=== PATIENT | male | born 1960 | race Caucasian/White ===

== ENCOUNTER → 2016-11-17 | Outpatient (CLI) | payer MEDICARE, MEDICAID ==
[2016-02-09 15:12] VITALS: BP 120/79
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
== END | disposition home or self-care (01) ==
LOC: KCIC 08:17
PROVIDERS: ATTEND Family Medicine
DX: M54.5 Low back pain (principal); M47.897 Other spondylosis, lumbosacral region
CPT/HCPCS: 72110

== ENCOUNTER 2017-05-09 10:59 | Emergency (ER) | payer MEDICARE, MEDICAID ==
[~2017-05-09] VITALS: Ht 180.3 cm; Wt 69.4 kg
[2017-05-09] MEDS ORDERED: KETOROLAC TROMETHAMINE 30 MG/ML INJ. IV ONE (11:30)
[2017-05-09 11:44] LABS: BASO % 1 % (0-3); EOS % 2 % (0-3); HEMATOCRIT 42.4 % (39.0-53.0); HEMOGLOBIN 14.4 g/dL (13.0-17.5); LYMPH # 2.3 x10^3/uL (1.0-4.8); LYMPH % 35 % (24-48); MEAN CORPUSCULAR HEMOGLOBIN 31 pg (25-35); MEAN CORPUSCULAR HGB CONC 34 g/dL (31-37); MEAN CORPUSCULAR VOLUME 92 fL (79-100); MONO % 7 % (0-9); NEUT % 55 % (31-73); PLATELET COUNT 304 x10^3/uL (140-400); RED CELL DISTRIBUTION WIDTH 13.3 % (11.5-14.5); WHITE BLOOD COUNT 6.5 x10^3/uL (4.0-11.0)
[2017-05-09 11:55] LABS: CALCIUM 8.7 mg/dL (8.5-10.1); CREATININE 1.2 mg/dL (0.7-1.3); GFR 62.9; POTASSIUM 4.1 mmol/L (3.5-5.1)
[2017-05-09 12:00] VITALS: BP 113/63
--- NOTE | 2017-05-09 12:00 | RAD ---
AP portable chest radiograph May 09, 2017 Clinical History: Left-sided chest pain. An AP portable erect digital radiograph of the chest was obtained. Comparison study is dated 02/09/2016. The cardiac and mediastinal silhouettes within normal limits in size and configuration. No acute pulmonary infiltrate is seen. No pleural effusion or pneumothorax is noted. Degenerative changes are seen involving the thoracic spine and both shoulders. Impression: No acute abnormality is seen.
[2017-05-09 12:01] LABS: ALBUMIN 3.9 g/dL (3.4-5.0); DIRECT BILIRUBIN 0.1 mg/dL (0.0-0.2); MAGNESIUM 2.3 mg/dL (1.8-2.4); TOTAL BILIRUBIN 0.5 mg/dL (0.2-1.0)
[2017-05-09 12:10] LABS: CKMB MASS 4.8 ng/mL (0.0-3.6)
--- NOTE | 2017-05-09 12:11 | EKG ---
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
--- NOTE | 2017-05-09 12:29 | PHYS DOC ---
Past Medical History Past Medical History: Arthritis, Asthma, COPD, GERD, Other Additional Past Medical Histor: "borderline kidney failure", OA Past Surgical History: Appendectomy, Other Additional Past Surgical Histo: bilateral knee, R shoulder Alcohol Use: Occasionally Drug Use: Marijuana Adult General Chief Complaint Chief Complaint: CHEST PAIN HPI HPI Patient is a 57 year old male brought from home by a family member with the complaint of shortness of air and chest pain. Patient has a history of COPD. He started having pain on the left side of his chest today that feels like "my diaphragm is cramping up". He states that the pain is worse when he takes a breath or moves. He's had pain like this before. It also worsens when he coughs. He has had a cough lately but he always has one. Patient did take a breathing treatment this morning that might have helped him. He did not take anything for the pain. He denies fever or chills. He is somewhat more short of breath than usual. Patient is a smoker. Review of Systems Review of Systems Constitutional: Denies fever or chills [] Eyes: Denies change in visual acuity, redness, or eye pain [] HENT: He has had some sinus congestion Respiratory: As in history of present illness Cardiovascular: He is not having chest pain that sounds cardiac, as in history of present illness. GI: Denies abdominal pain, nausea, vomiting, bloody stools or diarrhea [] : Denies dysuria or hematuria [] Musculoskeletal: Denies back pain or joint pain [] Integument: Denies rash or skin lesions [] Neurologic: Denies headache, focal weakness or sensory changes [] Current Medications Current Medications Current Medications Medications (Trade) Dose Ordered Sig/Maddison Start Time Stop Time Status Last Admin Dose Admin Ketorolac Tromethamine (Toradol) 30 mg 1X ONCE 05/09/17 11:30 05/09/17 11:31 DC 05/09/17 11:41 30 MG Allergies Allergies Allergies Coded Allergies Type Severity Reaction Last Updated Verified No Known Drug Allergies 08/07/14 No Physical Exam Physical Exam Constitutional: 57-year-old thin male who is alert, not dyspneic, but does seem to be splinting a bit with deep breaths, pulse ox on room air 95%, no acute distress. HENT: Normocephalic, atraumatic, bilateral external ears normal, nose normal. [ ] Eyes: conjunctiva normal, no discharge. [] Neck: Normal range of motion, no stridor. [] Cardiovascular:Heart rate regular rhythm, no murmur [] Lungs & Thorax: Bilateral breath sounds clear to auscultation , no wheezes, no prolongation of expiratory phase. Abdomen: Bowel sounds normal, soft, no tenderness, no masses, no pulsatile masses. [] Skin: Warm, dry, no erythema, no rash. [] Extremities: No tenderness, no cyanosis, no clubbing, ROM intact, no edema. [] Neurologic: Alert and oriented X 3, normal motor function, normal sensory function, no focal deficits noted. [] Current Patient Data Vital Signs Vital Signs Date Time Temp Pulse Resp B/P (MAP) Pulse Ox O2 Delivery O2 Flow Rate FiO2 05/09/17 12:00 66 18 113/63 (80) Room Air 05/09/17 11:05 97.8 100 97.8 Lab Values Laboratory Tests Test 05/09/17 11:15 White Blood Count 6.5 x10^3/uL (4.0-11.0) Red Blood Count 4.60 x10^6/uL (4.30-5.70) Hemoglobin 14.4 g/dL (13.0-17.5) Hematocrit 42.4 % (39.0-53.0) Mean Corpuscular Volume 92 fL (79-100) Mean Corpuscular Hemoglobin 31 pg (25-35) Mean Corpuscular Hemoglobin Concent 34 g/dL (31-37) Red Cell Distribution Width 13.3 % (11.5-14.5) Platelet Count 304 x10^3/uL (140-400) Neutrophils (%) (Auto) 55 % (31-73) Lymphocytes (%) (Auto) 35 % (24-48) Monocytes (%) (Auto) 7 % (0-9) Eosinophils (%) (Auto) 2 % (0-3) Basophils (%) (Auto) 1 % (0-3) Neutrophils # (Auto) 3.6 x10^3uL (1.8-7.7) Lymphocytes # (Auto) 2.3 x10^3/uL (1.0-4.8) Monocytes # (Auto) 0.5 x10^3/uL (0.0-1.1) Eosinophils # (Auto) 0.1 x10^3/uL (0.0-0.7) Basophils # (Auto) 0.0 x10^3/uL (0.0-0.2) Sodium Level 142 mmol/L (136-145) Potassium Level 4.1 mmol/L (3.5-5.1) Chloride Level 106 mmol/L (98-107) Carbon Dioxide Level 24 mmol/L (21-32) Anion Gap 12 (6-14) Blood Urea Nitrogen 16 mg/dL (8-26) Creatinine 1.2 mg/dL (0.7-1.3) Estimated GFR (Cockcroft-Gault) 62.9 Glucose Level 117 mg/dL (70-99) H Calcium Level 8.7 mg/dL (8.5-10.1) Magnesium Level 2.3 mg/dL (1.8-2.4) Total Bilirubin 0.5 mg/dL (0.2-1.0) Direct Bilirubin 0.1 mg/dL (0.0-0.2) Aspartate Amino Transferase (AST) 21 U/L (15-37) Alanine Aminotransferase (ALT) 24 U/L (16-63) Alkaline Phosphatase 62 U/L (46-116) Creatine Kinase 461 U/L (39-308) H Creatine Kinase MB (Mass) 4.8 ng/mL (0.0-3.6) H Creatine Kinase MB Relative Index 1.0 % (0-4) Troponin I Quantitative < 0.017 ng/mL (0.000-0.055) CV-Kwy-G-Type Natriuretic Peptide 94 pg/mL (0-124) Total Protein 7.0 g/dL (6.4-8.2) Albumin 3.9 g/dL (3.4-5.0) Lipase 125 U/L (73-393) Laboratory Tests 05/09/17 11:15 Laboratory Tests 05/09/17 11:15 EKG EKG 12-lead EKG read by me. Sinus rhythm. Heart rate 66. There are no acute ST or T wave changes indicative of ischemia or infarction. No STEMI. [] Radiology/Procedures Radiology/Procedures One view portable chest x-ray read by the radiologist. No acute abnormality. [] Course & Med Decision Making Course & Med Decision Making Pertinent Labs and Imaging studies reviewed. (See chart for details) 57-year-old male with a history of COPD presents with left-sided chest pain that is very positional, worsens with of breath, worsens with movement. Labs, EKG, chest x-ray unrevealing for acute abnormality. His lung exam is clear. Patient was given some IV Toradol and stated it helped him a lot. Before I was able to get back in the room to touch bases with the patient, he got his clothes on and came up to the nurse's desk stating that he was ready to go. I talked to him briefly and asked him if I could get some paperwork for him but the patient walked out of the emergency department as soon as his IV was discontinued. He ambulated without difficulty or dyspnea. I believe the patient is stable for discharge. [] Dragon Disclaimer Dragon Disclaimer This electronic medical record was generated, in whole or in part, using a voice recognition dictation system. Departure Departure Impression: Primary Impression: Chest wall pain Additional Impression: Bronchitis Disposition: 01 HOME, SELF-CARE Condition: IMPROVED Referrals: Shantelle CHA MD (PCP) Patient Instructions: Acute Bronchitis, [id number] Additional Instructions: You may try ibuprofen 400 mg (two of the OTC 200 mg pills) every 6-8 hours as needed for pain. Problem Qualifiers FRANCO FORBES MD May 09, 2017 12:29
== END 2017-05-09 12:33 | disposition home or self-care (01) ==
LOC: ER 10:59
DX: J40 Bronchitis, not specified as acute or chronic (principal); R07.89 Other chest pain; K21.9 Gastro-esophageal reflux disease without esophagitis; J44.9 Chronic obstructive pulmonary disease, unspecified; M19.90 Unspecified osteoarthritis, unspecified site; F12.10 Cannabis abuse, uncomplicated
CPT/HCPCS: 36415; 71010; 80048; 80076; 82553; 83690; 83735; 83880; 84484; 85025; 93005; 96374; 99285; J1885

== ENCOUNTER → 2017-07-21 | Outpatient (CLI) | payer MEDICARE, MEDICAID ==
--- NOTE | 2017-07-21 12:53 | RAD ---
Carotid ultrasound, 07/21/2017: History: Dizziness Duplex evaluation of the carotid arteries in neck was performed including grayscale, color-flow and spectral Doppler analysis. There is mild smooth plaquing at both carotid bifurcations. On the right the peak systolic velocity in the internal carotid artery is 91 cm/s with an end-diastolic velocity of 38 cm/s. The internal carotid to common carotid artery ratio is 1.2. On the left the peak systolic velocity in the internal carotid artery is 80 cm/s with an end-diastolic velocity of 33 cm/s. The internal carotid to common carotid artery ratio is 1.0. The Doppler findings on both sides suggest narrowing in the 0-50% diameter range. Antegrade flow is present in both vertebral arteries in the neck. IMPRESSION: Mild atherosclerotic plaquing at both carotid bifurcations with underlying luminal narrowing in the 0-50% diameter range bilaterally. Note: Stenosis calculations for CTA, MRA and conventional angiography are based upon determination of the distal ICA diameter in accordance with the NASCET methodology. Stenosis calculations for Doppler studies are derived from validated velocity criteria which are known to correlate with NASCET methodology of determining stenosis.
== END | disposition home or self-care (01) ==
LOC: US 09:54
PROVIDERS: ATTEND Otolaryngology
DX: I65.23 Occlusion and stenosis of bilateral carotid arteries (principal); R42 Dizziness and giddiness
CPT/HCPCS: 93880

== ENCOUNTER 2019-02-13 23:17 | Emergency (ER) | payer MEDICARE, MEDICAID ==
[~2019-02-13] VITALS: Ht 180.3 cm; Wt 73.9 kg
--- NOTE | 2019-02-13 23:39 | PHYS DOC ---
Past Medical History Past Medical History: Arthritis, Asthma, COPD, GERD, High Cholesterol, Other Additional Past Medical Histor: "borderline kidney failure", OA Past Surgical History: Appendectomy, Other Additional Past Surgical Histo: bilateral knee, R shoulder Smoking: Cigarettes Alcohol Use: Occasionally Drug Use: Marijuana Adult General Chief Complaint Chief Complaint: CHEST PAIN HPI HPI 58-year-old male presents with report of sternal chest pain which started at approximately 1600 today. Patient reports associated shortness of air and radiation down left arm and into back. Cardiac risk factors of high cholesterol, smoking, and family history. Denies leg swelling or calf tenderness. Denies pleuritic pain. Denies known trauma. Denies rash. Denies fever/chills. Review of Systems Review of Systems Constitutional: Denies fever or chills [] Eyes: Denies change in visual acuity, redness, or eye pain [] HENT: Denies nasal congestion or sore throat [] Respiratory: Denies cough; reports shortness of air Cardiovascular: Reports chest pain; denies palpitations GI: Denies abdominal pain, nausea, vomiting, or diarrhea [] : Denies dysuria or hematuria [] Musculoskeletal: Denies back pain or joint pain [] Integument: Denies rash or skin lesions [] Neurologic: Denies headache, focal weakness or sensory changes [] Complete systems were reviewed and found to be within normal limits, except as documented in this note. Current Medications Current Medications Current Medications Medications (Trade) Dose Ordered Sig/Maddison Start Time Stop Time Status Last Admin Dose Admin Aspirin (Millie Aspirin) 325 mg 1X ONCE 02/13/19 23:45 02/13/19 23:46 DC 02/13/19 23:50 325 MG Fentanyl Citrate (Fentanyl 2ml Vial) 50 mcg 1X ONCE 02/13/19 23:45 02/13/19 23:46 DC 02/13/19 23:51 50 MCG Ondansetron HCl (Zofran) 4 mg 1X ONCE 02/13/19 23:45 02/13/19 23:46 DC 02/13/19 23:51 4 MG Sodium Chloride 1,000 ml @ 1,000 mls/hr 1X ONCE 02/13/19 23:45 02/14/19 00:44 DC 02/13/19 23:50 1,000 MLS/HR Allergies Allergies Allergies Coded Allergies Type Severity Reaction Last Updated Verified No Known Drug Allergies 08/07/14 No Physical Exam Physical Exam Constitutional: Well developed, well nourished, no acute distress, non-toxic appearance. [] HENT: Normocephalic, atraumatic Eyes: Conjunctiva normal, no discharge. [] Neck: Normal range of motion, no tenderness, supple Cardiovascular: Heart rate normal, regular rhythm Lungs & Thorax: Bilateral breath sounds clear to auscultation [] Abdomen: Soft, no tenderness Skin: Warm, dry, no erythema, no rash. [] Extremities: No tenderness, ROM intact, no edema. [] Neurologic: Alert and oriented X 3, no focal deficits noted. [] Psychologic: Affect normal, judgement normal, mood normal. [] Current Patient Data Vital Signs Vital Signs Date Time Temp Pulse Resp B/P (MAP) Pulse Ox O2 Delivery O2 Flow Rate FiO2 02/13/19 23:59 68 24 124/75 (91) Room Air 02/13/19 23:51 99 02/13/19 23:22 98.0 98.0 Lab Values Laboratory Tests Test 02/13/19 23:27 White Blood Count 8.6 x10^3/uL (4.0-11.0) Red Blood Count 4.69 x10^6/uL (4.30-5.70) Hemoglobin 14.4 g/dL (13.0-17.5) Hematocrit 42.0 % (39.0-53.0) Mean Corpuscular Volume 90 fL (79-100) Mean Corpuscular Hemoglobin 31 pg (25-35) Mean Corpuscular Hemoglobin Concent 34 g/dL (31-37) Red Cell Distribution Width 13.7 % (11.5-14.5) Platelet Count 340 x10^3/uL (140-400) Neutrophils (%) (Auto) 45 % (31-73) Lymphocytes (%) (Auto) 45 % (24-48) Monocytes (%) (Auto) 6 % (0-9) Eosinophils (%) (Auto) 3 % (0-3) Basophils (%) (Auto) 1 % (0-3) Neutrophils # (Auto) 3.8 x10^3uL (1.8-7.7) Lymphocytes # (Auto) 3.8 x10^3/uL (1.0-4.8) Monocytes # (Auto) 0.5 x10^3/uL (0.0-1.1) Eosinophils # (Auto) 0.2 x10^3/uL (0.0-0.7) Basophils # (Auto) 0.1 x10^3/uL (0.0-0.2) Prothrombin Time 11.1 SEC (11.7-14.0) L Prothrombin Time INR 0.8 (0.8-1.1) PTT 29 SEC (24-38) D-Dimer (Marielle) 0.44 ug/mlFEU (0.00-0.50) Sodium Level 140 mmol/L (136-145) Potassium Level 4.3 mmol/L (3.5-5.1) Chloride Level 104 mmol/L (98-107) Carbon Dioxide Level 25 mmol/L (21-32) Anion Gap 11 (6-14) Blood Urea Nitrogen 16 mg/dL (8-26) Creatinine 1.6 mg/dL (0.7-1.3) H Estimated GFR (Cockcroft-Gault) 44.9 BUN/Creatinine Ratio 10 (6-20) Glucose Level 123 mg/dL (70-99) H Calcium Level 8.6 mg/dL (8.5-10.1) Magnesium Level 2.3 mg/dL (1.8-2.4) Total Bilirubin 0.2 mg/dL (0.2-1.0) Aspartate Amino Transferase (AST) 17 U/L (15-37) Alanine Aminotransferase (ALT) 21 U/L (16-63) Alkaline Phosphatase 86 U/L (46-116) Creatine Kinase 159 U/L (39-308) Creatine Kinase MB (Mass) 1.3 ng/mL (0.0-3.6) Creatine Kinase MB Relative Index 0.8 % (0-4) Troponin I Quantitative < 0.017 ng/mL (0.000-0.055) DE-Ekx-R-Type Natriuretic Peptide 124 pg/mL (0-124) Total Protein 7.0 g/dL (6.4-8.2) Albumin 3.4 g/dL (3.4-5.0) Albumin/Globulin Ratio 0.9 (1.0-1.7) L Lipase 185 U/L (73-393) Laboratory Tests 02/13/19 23:27 Laboratory Tests 02/13/19 23:27 EKG EKG @2324 NSR at 67bpm, NO ST elevation, incomplete RBBB Radiology/Procedures Radiology/Procedures CXR 2 view (preliminary interpretation by ED physician): NO acute process Course & Med Decision Making Course & Med Decision Making Pertinent Labs and Imaging studies reviewed. (See chart for details) Patient was significant cardiac risk factors presents with report of sternal chest pain with radiation to back and down left arm. Reports associated shortness of air. EKG stable. Labs obtained and posted to chart. Initial tropo mariusz within normal limits. D-dimer also within normal limits. Creatinine increased from prior per [employer] review. IVF hydration given. Chest x-ray without acute process.Patient requiring admission for further evaluation and treatment. Discussed with Dr. Leone (conservation science teacher for PCP- Dr. Cha) who is in agreement with admission. Discussed findings and plan with patient, who acknowledges understanding and agreement. Dragon Disclaimer Dragon Disclaimer This electronic medical record was generated, in whole or in part, using a voice recognition dictation system. Departure Departure Impression: Primary Impression: Chest pain, rule out acute myocardial infarction Additional Impression: Acute renal insufficiency Disposition: ADMITTED INPATIENT Admitting Physician: Emma Cha (d/w with Sulema) Condition: STABLE Referrals: Shantelle CHA MD (PCP) The HEART Score for CP Pts HEART Score for Chest Pain: HEART Score for Chest Pain Response (Comments) Value History Moderately Suspicious 1 ECG Normal 0 Age >45 - < 65 1 Risk Factors >3 Risk Factors or Hx CAD 2 Troponin < Normal Limit 0 Total 4 Risk Factors: Risk Factors: DM, Current or recent (<one month) smoker, HTN, HLP, family history of CAD, obesity. Risk Scores: Score 0 - 3: 2.5% MACE over next 6 weeks - Discharge Home Score 4 - 6: 20.3% MACE over next 6 weeks - Admit for Clinical Observation Score 7 - 10: 72.7% MACE over next 6 weeks - Early Invasive Strategies Problem Qualifiers EDNA BARFIELD DO February 13, 2019 23:39
[2019-02-13 23:42] LABS: BASO # 0.1 x10^3/uL (0.0-0.2); BASO % 1 % (0-3); EOS # 0.2 x10^3/uL (0.0-0.7); EOS % 3 % (0-3); HEMOGLOBIN 14.4 g/dL (13.0-17.5); LYMPH # 3.8 x10^3/uL (1.0-4.8); LYMPH % 45 % (24-48); MEAN CORPUSCULAR HEMOGLOBIN 31 pg (25-35); MEAN CORPUSCULAR HGB CONC 34 g/dL (31-37); MEAN CORPUSCULAR VOLUME 90 fL (79-100); MONO # 0.5 x10^3/uL (0.0-1.1); MONO % 6 % (0-9); NEUT # 3.8 x10^3uL (1.8-7.7); NEUT % 45 % (31-73); PLATELET COUNT 340 x10^3/uL (140-400); RED BLOOD COUNT 4.69 x10^6/uL (4.30-5.70); RED CELL DISTRIBUTION WIDTH 13.7 % (11.5-14.5); WHITE BLOOD COUNT 8.6 x10^3/uL (4.0-11.0)
[2019-02-13 23:44] LABS: PROTHROMBIN TIME PATIENT 11.1 SEC (11.7-14.0)
[2019-02-13] MEDS ORDERED: ONDANSETRON PF 4 MG/2 ML VIAL. IV ONE (23:45)
[2019-02-13] MEDS ORDERED: fentaNYL PF VIAL 100 MCG/2 ML VIAL IV ONE (23:45)
[2019-02-13] MEDS ORDERED: IV NORMAL SALINE 1000ML BAG 1,000 ML IV ONE (23:45)
[2019-02-13] MEDS ORDERED: ASPIRIN 325 MG TABLET PO ONE (23:45)
[2019-02-13 23:47] LABS: CALCIUM 8.6 mg/dL (8.5-10.1); CREATININE 1.6 mg/dL (0.7-1.3); GFR 44.9; POTASSIUM 4.3 mmol/L (3.5-5.1)
[2019-02-13 23:55] LABS: ALBUMIN 3.4 g/dL (3.4-5.0); ALBUMIN/GLOBULIN RATIO 0.9 (1.0-1.7); MAGNESIUM 2.3 mg/dL (1.8-2.4); TOTAL BILIRUBIN 0.2 mg/dL (0.2-1.0)
[2019-02-14] MEDS ORDERED: fentaNYL PF VIAL 100 MCG/2 ML VIAL IV PRN (00:30)
[2019-02-14] MEDS ORDERED: ONDANSETRON PF 4 MG/2 ML VIAL. IV PRN (00:30)
[2019-02-14 02:05] VITALS: BP 131/72
--- NOTE | 2019-02-14 05:21 | RAD ---
PA and lateral chest. HISTORY: Chest pain PA and lateral views were taken of the chest. There is linear scarring or atelectasis at the left costophrenic angle. Heart is normal in size. There is no pleural effusion. IMPRESSION: 1. Left lower lobe linear scarring or atelectasis. 2. No other infiltrates. Electronically signed by: Amando Arevalo MD (02/14/2019 5:19 AM) [id number]
--- NOTE | 2019-02-14 07:01 | EKG ---
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
[2019-03-04] MEDS ORDERED: ALBU2.5V8 INH (10:56)
[2019-03-04] MEDS ORDERED: VENTOLIN HFA18 GM INH (10:56)
[2019-03-04] MEDS ORDERED: IPRA0.2S5 NEB (10:56)
== END 2019-02-14 02:21 | disposition left against medical advice (07) ==
LOC: ER 02-14 00:09 → 6 SOUTH 02-14 00:23 → UNDOADMOB 02-14 00:23 → ER 02-14 02:21
DX: R07.2 Precordial pain (principal); N28.9 Disorder of kidney and ureter, unspecified; J44.9 Chronic obstructive pulmonary disease, unspecified; K21.9 Gastro-esophageal reflux disease without esophagitis; E78.00 Pure hypercholesterolemia, unspecified; F17.210 Nicotine dependence, cigarettes, uncomplicated; Z90.89 Acquired absence of other organs
CPT/HCPCS: 36415; 71046; 80053; 82553; 83690; 83735; 83880; 84484; 85025; 85379; 85610; 85730; 93005; 96374; 96375; 99285; J2405; J3010; J7030

== ENCOUNTER → 2019-03-04 | Outpatient (CLI) | payer MEDICARE, MEDICAID ==
[2019-02-14 02:05] VITALS: BP 131/72
[~2019-03-04] MED LIST: ALBU2.5V8 INH; CONTRAST GIVEN. MC PRN; IOHEXOL 300 MG/ML 100ML VIAL. IV ONE; IPRA0.2S5 NEB; VENTOLIN HFA18 GM INH
--- NOTE | 2019-03-04 13:55 | KCIC ---
CT SOFT TISSUE NECK W/CONTRAST Indication: Mass behind right ear for 5 months. Exposure: One or more of the following individualized dose reduction techniques were utilized for this examination: 1. Automated exposure control 2. Adjustment of the mA and/or kV according to patient size 3. Use of iterative reconstruction technique. Technique: Standard imaging obtained after intravenous contrast administration. There is swelling in the right posterolateral superior neck just below the skull base. This consists of fat density with thick irregular internal stranding and nodularity. This is not well-defined, but measures about 6 cm x 1.9 cm x 5.0 cm. Given that there appears to be a greater than normal amount of fat density, this is most suspicious for a fatty neoplasm such as liposarcoma. This appears to be within the subcutaneous tissue, no definite intramuscular involvement although CT is of limited sensitivity for this. No significant lymph node enlargement. No significant submandibular or parotid gland abnormality or asymmetry. No evidence of thyroid mass. No significant tonsillar enlargement. The airway is patent and midline. Parapharyngeal fat planes appear intact. Lung apices are clear with mild blebs. The partially visualized sinuses and the head appear clear. Cervical spine demonstrates degenerative spondylosis. There is mild spinal canal narrowing. Up to severe bilateral neural foraminal stenosis. IMPRESSION: Soft tissue subcutaneous mass at the area of concern at the posterolateral right upper neck with a mixture of fatty and soft tissue content. This is most concerning for neoplasm such as liposarcoma. Recommend oncology workup. Electronically signed by: Blake Espinoza MD (03/04/2019 1:52 PM) [facility]
== END | disposition home or self-care (01) ==
LOC: KCIC CT 10:03
PROVIDERS: ATTEND Surgery Plastic and Reconstructive Surgery
DX: R22.1 Localized swelling, mass and lump, neck (principal)
CPT/HCPCS: 70491; Q9967

== ENCOUNTER 2019-03-22 06:48 | Outpatient (CLI) | payer MEDICARE, MEDICAID ==
[~2019-03-22] VITALS: Ht 180.3 cm; Wt 76.2 kg
[~2019-03-22 06:48] MED LIST changes: -CONTRAST GIVEN. MC PRN; -IOHEXOL 300 MG/ML 100ML VIAL. IV ONE
--- NOTE | 2019-03-22 07:57 | NUR ---
Dr. Young came to bedside and explained to the patient that he would not do the biopsy and recommended that the patient followup with his ordering physician. Patient changed back into his clothes and walked out of CV/OBS.
== END 2019-03-22 08:00 | disposition home or self-care (01) ==
LOC: INTRAD 06:48
PROVIDERS: ATTEND Surgery Plastic and Reconstructive Surgery
DX: Z53.9 Procedure and treatment not carried out, unspecified reason (principal)
CPT/HCPCS: 36415

== ENCOUNTER 2019-12-24 18:14 | Emergency (ER) | payer MEDICARE, MEDICAID ==
[~2019-12-24] VITALS: Ht 180.3 cm; Wt 74.0 kg
[2019-12-24 18:20] VITALS: BP 153/86
[2019-12-24] MEDS ORDERED: OXYC1TAB19 PO (18:49)
[2019-12-24] MEDS ORDERED: ERYT1OIN6 OU (18:49)
[2019-12-24] MEDS ORDERED: PRED5DRO20 OU (18:49)
[2019-12-24] MEDS ORDERED: ATRO2DRO3 OU (18:49)
--- NOTE | 2019-12-24 18:49 | PHYS DOC ---
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 Patient states that initially he was trying to use his goggles but he was just not able to see the site adequately and tried she'll his eyes with his hand as best he could while welding but now he has pain in both of his eyes.[] Review of Systems Review of Systems Constitutional: Denies fever or chills [] Eyes: Denies change in visual acuity. Complains of bilateral eye pain [] Respiratory: Denies cough or shortness of breath [] Cardiovascular: No additional information not addressed in HPI [] Integument: Denies rash or skin lesions [] Neurologic: Denies headache, focal weakness or sensory changes [] Allergies Allergies Allergies Coded Allergies Type Severity Reaction Last Updated Verified No Known Drug Allergies 08/07/14 No Physical Exam Physical Exam Constitutional: Well developed, well nourished, no acute distress, non-toxic appearance. [] Eyes: PERRLA, EOMI, conjunctiva slightly injected, no discharge. [] Cardiovascular:Heart rate regular rhythm, no murmur [] Lungs & Thorax: Bilateral breath sounds clear to auscultation [] Skin: Warm, dry, no erythema, no rash. [] EKG EKG [] Radiology/Procedures Radiology/Procedures [] Course & Med Decision Making Course & Med Decision Making Pertinent Labs and Imaging studies reviewed. (See chart for details) [] Dragon Disclaimer Dragon Disclaimer This electronic medical record was generated, in whole or in part, using a voice recognition dictation system. Departure Departure Impression: Primary Impression: Welders' keratitis of both eyes Disposition: 01 HOME, SELF-CARE Condition: STABLE Referrals: Shantelle CHA MD (PCP) Patient Instructions: Eye - Ultraviolet Keratitis Scripts Erythromycin Base (Erythromycin) 1 Gm Oint...g. 0.5 INCH OU TID, #3.5 ML Prov: THOMAS COLUNGA Jr. DO 12/24/19 Prednisolone Acetate/Pf (Prednisolone Acet 1% Eye Drop) 5 Ml Drops.susp 1 DROP OU QID, #5 ML 0 Refills Prov: THOMAS COLUNGA Jr. DO 12/24/19 Atropine Sulfate (Atropine Sulfate) 2 Ml Drops 1 DROP OU BID, #5 ML 0 Refills Prov: THOMAS COLUNGA Jr. DO 12/24/19 Oxycodone/Apap 7.5-325 (PERCOCET 7.5-325 MG TABLET ) 1 Each Tablet 1 TAB PO QIDPRN PRN for PAIN MDD 4 Tablet(s) for 5 Days, #15 TAB 0 Refills Prov: THOMAS COLUNGA Jr. DO 12/24/19 THOMAS COLUNGA Jr. DO Dec 24, 2019 18:49
== END 2019-12-24 19:03 | disposition home or self-care (01) ==
LOC: ER 18:14
DX: H16.133 Photokeratitis, bilateral (principal); J44.9 Chronic obstructive pulmonary disease, unspecified; E78.00 Pure hypercholesterolemia, unspecified; K21.9 Gastro-esophageal reflux disease without esophagitis; F17.200 Nicotine dependence, unspecified, uncomplicated; W89.8XXA Exposure to other man-made visible and ultraviolet light, initial encounter; Y93.89 Activity, other specified; Y92.89 Other specified places as the place of occurrence of the external cause; Y99.8 Other external cause status
CPT/HCPCS: 99283

== ENCOUNTER 2021-03-13 09:52 | Emergency (ER) | payer MEDICARE, MEDICAID ==
[~2021-03-13] VITALS: Ht 180.3 cm; Wt 75.0 kg
[~2021-03-13 09:52] MED LIST changes: +ATRO2DRO3 OU; +ERYT1OIN6 OU; +OXYC1TAB19 PO; +PRED5DRO20 OU
[2021-03-13] MEDS ORDERED: ONDANSETRON PF 4 MG/2 ML VIAL. IV ONE (10:30)
[2021-03-13] MEDS ORDERED: fentaNYL PF VIAL 100 MCG/2 ML VIAL IV ONE (10:30)
[2021-03-13] MEDS ORDERED: IV NORMAL SALINE 1000ML BAG 1,000 ML IV ONE (10:30)
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
[2021-03-13 10:54] LABS: CALCIUM 9.5 mg/dL (8.5-10.1); CREATININE 1.3 mg/dL (0.7-1.3); GFR 56.7; POTASSIUM 4.3 mmol/L (3.5-5.1)
[2021-03-13 10:56] LABS: BASO # 0.1 x10^3/uL (0.0-0.2); BASO % 1 % (0-3); EOS # 0.1 x10^3/uL (0.0-0.7); EOS % 2 % (0-3); HEMATOCRIT 43.7 % (39.0-53.0); HEMOGLOBIN 15.2 g/dL (13.0-17.5); LYMPH # 2.8 x10^3/uL (1.0-4.8); LYMPH % 40 % (24-48); MEAN CORPUSCULAR HEMOGLOBIN 31 pg (25-35); MEAN CORPUSCULAR HGB CONC 35 g/dL (31-37); MEAN CORPUSCULAR VOLUME 89 fL (79-100); MONO # 0.4 x10^3/uL (0.0-1.1); MONO % 6 % (0-9); NEUT # 3.6 x10^3/uL (1.8-7.7); NEUT % 51 % (31-73); PLATELET COUNT 412 x10^3/uL (140-400); RED BLOOD COUNT 4.93 x10^6/uL (4.30-5.70); RED CELL DISTRIBUTION WIDTH 13.4 % (11.5-14.5)
[2021-03-13 11:00] LABS: ALBUMIN 4.3 g/dL (3.4-5.0); ALBUMIN/GLOBULIN RATIO 1.2 (1.0-1.7); MAGNESIUM 2.3 mg/dL (1.8-2.4); TOTAL BILIRUBIN 0.6 mg/dL (0.2-1.0)
[2021-03-13] MEDS ORDERED: CONTRAST GIVEN. MC PRN (11:15)
[2021-03-13] MEDS ORDERED: IOHEXOL 350 MG/ML 100 ML VIAL. IV ONE (11:15)
[2021-03-13 11:57] VITALS: BP 144/80
--- NOTE | 2021-03-13 12:04 | RAD ---
CTA AORTA/RUNOFF W/WO +POST History: Reason: left lower extremity pain, pallor, absent pedal pulse, SOA / Spl. Instructions: omni o 350 90ml / History: Technique: CT angiogram abdomen and pelvis with lower extremity runoff with intravenous contrast. Cor onal and sagittal reconstructions were performed. 3-D reconstructions were performed. Exposure: One or more of the following individualized dose reduction techniques were utilized for thi s examination: 1. Automated exposure control 2. Adjustment of the mA and/or kV according to patient size 3. Use of iterative reconstruction technique. Comparison: None Findings: Lower chest: No consolidation or pleural effusion. Linear bibasilar opacities. Abdomen and pelvis: The liver, spleen, adrenal glands, pancreas and gallbladder are unremarkable. No biliary ductal dilatation. Bilateral renal cysts on the right measures 2.8 cm and left measures 2.7 c m. Small additional right anterior renal cyst. No hydronephrosis. No renal calculi. Appendix not well seen. No evidence of bowel obstruction. No pathologic lymphadenopathy. No ascites. Angiogram:Mild atheromatous plaque within the nonaneurysmal abdominal aorta. Patent celiac, superior mesenteric, bilateral renal and inferior mesenteric arteries. Right: Patent right common, internal and external iliac arteries. Patent common femoral, deep femoral , superficial femoral, and popliteal arteries. Patent tibial peroneal trunk. Patent anterior tibial, posterior tibial and peroneal arteries to the level of the ankle. Patent anterior tibial and posterio r tibial arteries into the foot. Lateral contrast opacification of the distal peroneal artery likely related to contrast bolus timing. Left: Patent left common, internal and external iliac arteries. Patent common femoral, deep femoral, superficial femoral and popliteal arteries. Patent tibial peroneal trunk. Patent anterior tibial, per quintero and posterior tibial arteries to the level the ankle. Patent anterior tibial and posterior tibi al arteries into the foot. Lack of contrast opacification of the distal left peroneal artery may rela te to contrast bolus timing. Bones: Lower lumbar spondylosis most prominent L4-L5. Transitional lumbosacral anatomy with sacraliza tion of L5. Myotendinous structures grossly intact. Impression: 1. No arterial stenosis or occlusion. Mild atheromatous plaque. 2. No acute abdominal or pelvic pathology. Electronically signed by: Kavin Mccain DO (03/13/2021 12:01 PM) [id number]
--- NOTE | 2021-03-13 12:57 | RAD ---
INDICATION: Reason: left leg pain / Spl. Instructions: / History: COMPARISON: None. TECHNIQUE: Grayscale, color and doppler ultrasound images were obtained of the left lower extremity v enous vasculature. LEFT: No thrombus identified in the common femoral vein, femoral vein, popliteal vein or visualized calf ve ins. IMPRESSION: * No thrombus identified in deep venous system of the left lower extremity. Electronically signed by: Fish Martinez MD (03/13/2021 12:55 PM) [id number]
== END 2021-03-13 12:57 | disposition home or self-care (01) ==
LOC: ER 09:52
DX: M79.662 Pain in left lower leg (principal); R06.02 Shortness of breath; J44.9 Chronic obstructive pulmonary disease, unspecified; K21.9 Gastro-esophageal reflux disease without esophagitis; E78.00 Pure hypercholesterolemia, unspecified; Z72.0 Tobacco use
CPT/HCPCS: 36415; 75635; 80053; 83735; 83880; 84484; 85025; 85610; 93971; 96361; 96374; 96375; 99285; J2405; J3010; J7030; Q9967

== ENCOUNTER → 2021-05-06 | Outpatient (CLI) | payer MEDICARE, MEDICAID ==
--- NOTE | 2021-05-06 13:34 | KCIC ---
EXAM: XR CERVICAL SPINE 2-3V. HISTORY: Neck pain, degenerative disc disease. COMPARISON: None. FINDINGS: No fractures are identified. Degenerative disc disease is moderate from a C5-C7 and mild fr om C3 through C5. There is no prevertebral soft tissue swelling. Facet osteoarthritis is moderate to severe on the left and moderate on the right. Carotid atherosclerotic calcifications are noted. IMPRESSION: 1. Degenerative disc disease is moderate from C5 through C7 and mild from C3 through C5. Electronically signed by: Jennifer Agrawal MD (05/06/2021 1:31 PM) [id number]
== END ==
LOC: KCIC 09:43
PROVIDERS: ATTEND Family Medicine
DX: M50.31 Other cervical disc degeneration, high cervical region (principal); M50.323 Other cervical disc degeneration at C6-C7 level; M50.322 Other cervical disc degeneration at C5-C6 level; M47.812 Spondylosis without myelopathy or radiculopathy, cervical region; I65.29 Occlusion and stenosis of unspecified carotid artery
CPT/HCPCS: 72040

== ENCOUNTER 2021-09-29 13:53 | Emergency (ER) | payer MEDICARE, MEDICAID | END 2021-09-29 15:58 | disposition left against medical advice (07) | LOC: ER 13:53 | DX: M25.512 Pain in left shoulder (principal); M79.602 Pain in left arm; Z53.21 Procedure and treatment not carried out due to patient leaving prior to being seen by health care provider ==

== ENCOUNTER 2021-11-06 03:24 | Emergency (ER) | payer MEDICARE, MEDICAID ==
[~2021-11-06] VITALS: Ht 180.3 cm; Wt 75.0 kg
[2021-11-06 04:29] LABS: BASO # 0.1 x10^3/uL (0.0-0.2); BASO % 1 % (0-3); EOS # 0.2 x10^3/uL (0.0-0.7); EOS % 3 % (0-3); HEMATOCRIT 41.8 % (39.0-53.0); HEMOGLOBIN 13.8 g/dL (13.0-17.5); LYMPH # 2.4 x10^3/uL (1.0-4.8); LYMPH % 29 % (24-48); MEAN CORPUSCULAR HEMOGLOBIN 30 pg (25-35); MEAN CORPUSCULAR HGB CONC 33 g/dL (31-37); MEAN CORPUSCULAR VOLUME 91 fL (79-100); MONO # 0.5 x10^3/uL (0.0-1.1); MONO % 5 % (0-9); NEUT # 5.2 x10^3/uL (1.8-7.7); NEUT % 62 % (31-73); PLATELET COUNT 353 x10^3/uL (140-400); RED CELL DISTRIBUTION WIDTH 13.4 % (11.5-14.5); WHITE BLOOD COUNT 8.3 x10^3/uL (4.0-11.0)
[2021-11-06 04:31] LABS: PROTHROMBIN TIME PATIENT 10.8 SEC (11.7-14.0)
[2021-11-06 04:34] LABS: D-DIMER 1.93 ug/mlFEU (0.00-0.50)
[2021-11-06 04:37] LABS: CALCIUM 8.1 mg/dL (8.5-10.1); CREATININE 1.3 mg/dL (0.7-1.3); GFR 56.5; POTASSIUM 3.8 mmol/L (3.5-5.1)
[2021-11-06 04:40] LABS: ALBUMIN 3.4 g/dL (3.4-5.0); ALBUMIN/GLOBULIN RATIO 0.9 (1.0-1.7); TOTAL BILIRUBIN 0.2 mg/dL (0.2-1.0); TOTAL PROTEIN 7.3 g/dL (6.4-8.2)
--- NOTE | 2021-11-06 05:03 | RAD ---
XR CHEST 1V Clinical History: Reason: shortness of breath / Spl. Instructions: / History: Technique: AP view of the chest was obtained at 11/06/2021 4:35 AM. Comparison: February 14, 2019. Findings: The cardiomediastinal silhouette is normal. The pulmonary vasculature is normal. This linear opacitie s in the lung bases. Impression: Pulmonary infiltrates suggesting atypical pneumonia. Electronically signed by: Jamie Ward III, MD (11/06/2021 5:01 AM) [facility]
--- NOTE | 2021-11-06 05:20 | EKG ---
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
[2021-11-06] MEDS ORDERED: IOHEXOL 350 MG/ML 100 ML VIAL. IV ONE (06:00)
--- NOTE | 2021-11-06 06:12 | RAD ---
CTA Chest with contrast: Clinical History: Reason: dyspnea; left-sidE pleuritic cP; markedly elevated D dimer Axial helical images of the chest were obtained after the administration of 90 cc of IV Omnipaque 350 and timed appropriately for a pulmonary arterial study. Conventional axial reconstruction was perfo rmed in addition to coronal, sagittal and bilateral oblique MIP (maximum intensity projection). This study was ordered to detect possible pulmonary embolism. There are no filling defects to suggest pulmonary embolism. There is mild patchy opacity in the lung bases. There is no mediastinal or hilar lymphadenopathy. The thoracic aorta appears normal. Impression: 1. No evidence of pulmonary embolism. 2. Mild basilar infiltrates could be disc atelectasis or early pneumonia. End impression PQRS Compliance Statement: One or more of the following individualized dose reduction techniques were utilized for this examinat ion: 1. Automated exposure control 2. Adjustment of the mA and/or kV according to patient size 3. Use of iterative reconstruction technique Electronically signed by: Jamie Ward III, MD (11/06/2021 6:09 AM) [facility]
--- NOTE | 2021-11-06 07:15 | PHYS DOC ---
Past Medical History Past Medical History: Arthritis, Asthma, COPD, GERD, High Cholesterol, Other Additional Past Medical Histor: ACID REFLUX (GISSEL WOLFE MD) Past Surgical History: Appendectomy, Other Additional Past Surgical Histo: RT SHOULDER, KNEE (GISSEL WOLFE MD) Smoking Status: Former Smoker Alcohol Use: Occasionally Drug Use: None (GISSEL WOLFE MD) Adult General Chief Complaint Chief Complaint: SHORTNESS OF BREATH HPI HPI The patient is a 61-year-old male with a history of asthma and COPD not on home oxygen. He has no known cardiovascular disease history per him. He presents for evaluation of shortness of breath which woke him up from sleep overnight a couple of hours prior to arrival. There is associated mild left-sided pleuritic chest discomfort; it hurts to take a deep breath. Patient was feeling normal when he went to bed. No associated fevers, nausea or vomiting, upper respiratory congestio n/rhinorrhea, cough, sore throat, chiara substernal chest pain of any kind, abdominal pain of any kind, flank pain, midline back pain, dysuria, hematuria, polyuria or oliguria, changes in bowel habits, pain or swelling to arms or legs. Vital signs are appropriate here and the patient is in no acute distress. Lungs are completely clear to auscultation. He states he tried his nebulizer treatments at home without relief of symptoms. (GISSEL WOLFE MD) Review of Systems Review of Systems A 12 point review of systems was completed and was negative except where noted in HPI above. (GISSEL WOLFE MD) Current Medications Current Medications Current Medications Medications (Trade) Dose Ordered Sig/Maddison Start Time Stop Time Status Last Admin Dose Admin Azithromycin (Zithromax) 500 mg 1X ONCE 11/06/21 08:15 11/06/21 08:16 DC Ceftriaxone Sodium (Rocephin) 1 gm 1X ONCE 11/06/21 08:15 11/06/21 08:16 DC Iohexol (Omnipaque 350 Mg/ml) 90 ml 1X ONCE 11/06/21 06:00 11/06/21 06:01 DC 11/06/21 05:59 90 ML Methylprednisolone Sodium Succinate (SOLU-Medrol 125MG VIAL) 125 mg 1X ONCE 11/06/21 08:15 11/06/21 08:16 DC (VICTORIA COLEMAN DO) Allergies Allergies Allergies Coded Allergies Type Severity Reaction Last Updated Verified No Known Drug Allergies 08/07/14 No (VICTORIA COLEMAN DO) Physical Exam Physical Exam 61-year-old male appearing nontoxic and in no acute distress. Head is normocephalic and atraumatic. Neck is supple and nontender. Oropharynx is moist. Lungs are clear to auscultation at all stations. There is a normal S1 and S2 without rubs or gallops and capillary refill is appropriate, less than 2 seconds globally. Abdomen is soft, nontender and nondistended without pulsatile mass. Skin is warm and dry without cyanosis, clubbing or edema. Psychiatrically, the patient demonstrates appropriate mood and affect and is alert. Evaluation of the extremities reveals BUEs and BLEs neurovascularly intact distally with strength out of 5, sensation intact light touch in all nerve distributions, radial, DP and PT pulses 2+ and equal bilaterally, capillary refill less than 2 seconds, hands and feet warm and well-perfused. No dependent peripheral edema distally. No calf tenderness or swelling bilaterally. Homans test is negative bilaterally. (GISSEL WOLFE MD) Current Patient Data Vital Signs Vital Signs Date Time Temp Pulse Resp B/P (MAP) Pulse Ox O2 Delivery O2 Flow Rate FiO2 11/06/21 06:10 76 131/69 (89) 98 Room Air 11/06/21 03:40 98.7 24 98.7 (VICTORIA COLEMAN DO) Lab Values Laboratory Tests Test 11/06/21 03:40 11/06/21 05:30 White Blood Count 8.3 x10^3/uL (4.0-11.0) Red Blood Count 4.60 x10^6/uL (4.30-5.70) Hemoglobin 13.8 g/dL (13.0-17.5) Hematocrit 41.8 % (39.0-53.0) Mean Corpuscular Volume 91 fL (79-100) Mean Corpuscular Hemoglobin 30 pg (25-35) Mean Corpuscular Hemoglobin Concent 33 g/dL (31-37) Red Cell Distribution Width 13.4 % (11.5-14.5) Platelet Count 353 x10^3/uL (140-400) Neutrophils (%) (Auto) 62 % (31-73) Lymphocytes (%) (Auto) 29 % (24-48) Monocytes (%) (Auto) 5 % (0-9) Eosinophils (%) (Auto) 3 % (0-3) Basophils (%) (Auto) 1 % (0-3) Neutrophils # (Auto) 5.2 x10^3/uL (1.8-7.7) Lymphocytes # (Auto) 2.4 x10^3/uL (1.0-4.8) Monocytes # (Auto) 0.5 x10^3/uL (0.0-1.1) Eosinophils # (Auto) 0.2 x10^3/uL (0.0-0.7) Basophils # (Auto) 0.1 x10^3/uL (0.0-0.2) Prothrombin Time 10.8 SEC (11.7-14.0) L Prothrombin Time INR 0.8 (0.8-1.1) Activated Partial Thromboplast Time 28 SEC (24-38) D-Dimer (Marielle) 1.93 ug/mlFEU (0.00-0.50) H Sodium Level 144 mmol/L (136-145) Potassium Level 3.8 mmol/L (3.5-5.1) Chloride Level 109 mmol/L (98-107) H Carbon Dioxide Level 29 mmol/L (21-32) Anion Gap 6 (6-14) Blood Urea Nitrogen 16 mg/dL (8-26) Creatinine 1.3 mg/dL (0.7-1.3) Estimated GFR (Cockcroft-Gault) 56.5 BUN/Creatinine Ratio 12 (6-20) Glucose Level 129 mg/dL (70-99) H Calcium Level 8.1 mg/dL (8.5-10.1) L Total Bilirubin 0.2 mg/dL (0.2-1.0) Aspartate Amino Transferase (AST) 18 U/L (15-37) Alanine Aminotransferase (ALT) 38 U/L (16-63) Alkaline Phosphatase 89 U/L (46-116) Troponin I High Sensitivity 6 ng/L (4-75) 6 ng/L (4-75) JC-Psk-T-Type Natriuretic Peptide 180 pg/mL (0-124) H Total Protein 7.3 g/dL (6.4-8.2) Albumin 3.4 g/dL (3.4-5.0) Albumin/Globulin Ratio 0.9 (1.0-1.7) L Laboratory Tests 11/06/21 03:40 Laboratory Tests 11/06/21 03:40 (VICTORIA COLEMAN DO) EKG EKG Sinus rhythm, rate 68, no acute ST elevation or depression, AL 154, QRS 96, QTc 411, EP interpretation. Nonischemic tracing, intervals appropriate. (GISSEL WOLFE MD) Radiology/Procedures Radiology/Procedures XR CHEST 1V Clinical History: Reason: shortness of breath / Spl. Instructions: / History: Technique: AP view of the chest was obtained at 11/06/2021 4:35 AM. Comparison: February 14, 2019. Findings: The cardiomediastinal silhouette is normal. The pulmonary vasculature is normal. This linear opacities in the lung bases. Impression: Pulmonary infiltrates suggesting atypical pneumonia. Electronically signed by: Krishna Hannah III, MD (11/06/2021 5:01 AM) [facility] DICTATED and SIGNED BY: KRISHNA HANNAH III, MD DATE: 11/06/21 [id number] (GISSEL WOLFE MD) Radiology/Procedures [facility] [address] [place] [address] IMAGING REPORT Signed PATIENT: JAREN SPAIN AACCOUNT: [id number] : 1960 LOCATION: ER AGE: 61 SEX: M EXAM STATUS: REG ER ORD. PHYSICIAN: GISSEL WOLFE MD REASON: dyspnea; left-sidE pleuritic cP; markedly elevated D dimer;OMNI 350,90ML PROCEDURE: CT ANGIOGRAPHY CHEST CTA Chest with contrast: Clinical History: Reason: dyspnea; left-sidE pleuritic cP; markedly elevated D dimer Axial helical images of the chest were obtained after the administration of 90 cc of IV Omnipaque 350 and timed appropriately for a pulmonary arterial study. Conventional axial reconstruction was performed in addition to coronal, sagittal and bilateral oblique MIP (maximum intensity projection). This study was ordered to detect possible pulmonary embolism. There are no filling defects to suggest pulmonary embolism. There is mild patchy opacity in the lung bases. There is no mediastinal or hilar lymphadenopathy. The thoracic aorta appears normal. Impression: 1. No evidence of pulmonary embolism. 2. Mild basilar infiltrates could be disc atelectasis or early pneumonia. End impression PQRS Compliance Statement: One or more of the following individualized dose reduction techniques were utilized for this examination: 1. Automated exposure control 2. Adjustment of the mA and/or kV according to patient size 3. Use of iterative reconstruction technique Electronically signed by: Krishna Hannah III, MD (11/06/2021 6:09 AM) [facility] DICTATED and SIGNED BY: KRISHNA HANNAH III, MD DATE: 11/06/21 [id number] 0 (VICTORIA COLEMAN DO) Course & Med Decision Making Course & Med Decision Making Labs unremarkable aside from elevated D-dimer. Pending delta troponin and CT angiography of the chest, transition of care to Dr. Coleman. (GISSEL WOLFE MD) Course & Med Decision Making Patient is a 61-year-old male who presented to ER due to cough, trouble breathing. Patient said his girlfriend had pneumonia last month. Patient CT scan show lower lobe infiltration, patient was tested for COVID-19, test result is pending at this time. Patient vital signs are reassuring. Patient is in no acute distress. Patient will be discharged home with antibiotic and steroid. (VICTORIA COLEMAN DO) Dragon Disclaimer Dragon Disclaimer This electronic medical record was generated, in whole or in part, using a voice recognition dictation system. (GISSEL WOLFE MD) Departure Departure Impression: Primary Impression: Shortness of breath Additional Impressions: Pneumonia Person under investigation for COVID-19 Disposition: 01 HOME / SELF CARE / HOMELESS Condition: STABLE Referrals: Shantelle CHA MD (PCP) Follow up with your doctor this week for reevaluation Patient Instructions: Pneumonia, Adult Additional Instructions: If You Test Positive for COVID-19 (Isolate) Everyone, regardless of vaccination status. Stay home for 5 days. If you have no symptoms or your symptoms are resolving after 5 days, you can leave your house. Continue to wear a mask around others for 5 additional days. If you have a fever, continue to stay home until your fever resolves. If You Were Exposed to Someone with COVID-19 (Quarantine) If you: Have been boosted OR Completed the primary series of Pfizer or Moderna vaccine within the last 6 months OR Completed the primary series of J&J vaccine within the last 2 months Wear a mask around others for 10 days. Test on day 5, if possible. If you develop symptoms get a test and stay home. If you: Completed the primary series of Pfizer or Moderna vaccine over 6 months ago and are not boosted OR Completed the primary series of J&J over 2 months ago and are not boosted OR Are unvaccinated Stay home for 5 days. After that continue to wear a mask around others for 5 additional days. If you cant quarantine you must wear a mask for 10 days. Test on day 5 if possible. If you develop symptoms get a test and stay home Scripts Amoxicillin/Potassium Clav (AMOX TR-K CLV 875-125 MG TAB) 1 Each Tablet 1 TAB PO BID for 10 Days, #20 TAB Prov: VICTORIA COLEMAN DO 11/06/21 Azithromycin (ZITHROMAX) 250 Mg Tablet 1 PKG PO UD for 5 Days, #6 TAB Prov: VICTORIA COLEMAN DO 11/06/21 Prednisone (PREDNISONE) 20 Mg Tablet 1 TAB PO DAILY for 10 Days, #10 TAB Prov: VICTORIA COLEMAN DO 11/06/21 Problem Qualifiers GISSEL WOLFE MD Nov 06, 2021 07:15 VICTORIA COLEMAN DO Nov 06, 2021 08:30
[2021-11-06] MEDS ORDERED: AZITHROMYCIN 250 MG TABLET. PO ONE (08:15)
[2021-11-06] MEDS ORDERED: cefTRIAXone IV Push 1 GM VIAL. IVP ONE (08:15)
[2021-11-06] MEDS ORDERED: methylPREDNISolone SOD SUCC PF 125 MG/2 ML VIAL. IV ONE (08:15)
[2021-11-06] MEDS ORDERED: PRED20TA PO (08:29)
[2021-11-06] MEDS ORDERED: AZIT250T PO (08:29)
[2021-11-06] MEDS ORDERED: AMOX1TAB11 PO (08:29)
[2021-11-06 08:40] VITALS: BP 144/74
--- NOTE | 2021-11-07 09:36 | NUR ---
IP: Attempted to contact pt concerning covid results. No answer, left a voicemail to return the call. Addendum: 11/07/21 at 1007 by WALKER MEHTA RN Pt returned my call. Informed him of negative covid test. He verbalized understanding.
== END 2021-11-06 09:00 | disposition home or self-care (01) ==
LOC: ER 03:24
DX: J18.9 Pneumonia, unspecified organism (principal); M19.90 Unspecified osteoarthritis, unspecified site; J44.9 Chronic obstructive pulmonary disease, unspecified; K21.9 Gastro-esophageal reflux disease without esophagitis; E78.00 Pure hypercholesterolemia, unspecified; Z20.822 Contact with and (suspected) exposure to COVID-19
CPT/HCPCS: 36415; 71045; 71275; 80053; 83880; 84484; 85025; 85379; 85610; 85730; 93005; 96374; 96375; 99285; C9803; J0696; J2930; Q9967; U0003

== ENCOUNTER → 2021-11-21 | Outpatient (CLI) | payer MEDICARE, MEDICAID ==
[2021-11-06 08:40] VITALS: BP 144/74
[~2021-11-21] MED LIST changes: +AMOX1TAB11 PO; +AZIT250T PO; +PRED20TA PO
--- NOTE | 2021-11-21 11:54 | KCIC ---
AP and Lateral Views of the Chest 11/21/2021 10:54 AM Indication: Pneumonia. Chronic cough. Significant smoking history. History of pneumonia. Comparison: CT angiography of the chest November 06, 2021 Findings: There is no focal consolidation or infiltrate identified. The cardiomediastinal silhouette is within normal limits. There is no evidence of pneumothorax or pleural effusion. No acute osseous a bnormalities are identified. Impression: No evidence of acute cardiopulmonary process. Electronically signed by: Nikolay Young MD (11/21/2021 11:51 AM) [id number]
== END ==
LOC: KCIC 10:51
PROVIDERS: ATTEND Family Medicine
DX: R05.3 Chronic cough (principal)
CPT/HCPCS: 71046